=== PATIENT | female | born 1950 | race Caucasian/White ===

== ENCOUNTER → 2018-01-06 12:55 | Outpatient (CLI) | payer MEDICARE, SELFPAY ==
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
== END ==
PROVIDERS: PCP Family Medicine; Visit Provider Family Medicine
DX: M25.561 Pain in right knee (principal); M17.11 Unilateral primary osteoarthritis, right knee; S89.91XA Unspecified injury of right lower leg, initial encounter; Z98.890 Other specified postprocedural states; W17.2XXA Fall into hole, initial encounter
CPT/HCPCS: 73562

== ENCOUNTER 2018-04-19 00:05 | Outpatient (CLI) | payer MEDICARE, SELFPAY ==
[2018-04-19 10:19] LABS: ALT 93 U/L (12-78); Cholesterol 157 mg/dL (50-200); HDL Cholesterol 52 mg/dL (40-60); LDL CHOLESTEROL 86 mg/dL (<100); Triglyceride 126 mg/dL (30-150)
[2018-04-21 09:45] LABS: Hemoglobin A1C 6.4 % (4.5-6.2)
== END 2018-04-19 00:25 ==
PROVIDERS: PCP Family Medicine; Visit Provider Family Medicine
DX: E11.9 Type 2 diabetes mellitus without complications (principal); E78.5 Hyperlipidemia, unspecified
CPT/HCPCS: 36415; 80061; 83721; 83036; 84460

== ENCOUNTER 2018-11-18 09:26 | Emergency (ER) | payer MEDICARE, SELFPAY ==
[2018-11-18] VITALS (15 sets, daily range): BP systolic 111–134; BP diastolic 61–82; PULSE 89–126; RESP 12–19; TEMP 36.4; O2SAT 90–96
--- NOTE | 2018-11-18 09:53 | DI.RAD_ITS ---
SYMPTOM/DIAGNOSIS: S/P FALL DOWN 10, R/O FX 3RD AND 4TH FINGERS RIGHT HAND: No fracture or dislocation is seen. There are mild degenerative changes. IMPRESSION: Negative right hand.
--- NOTE | 2018-11-18 09:53 | DI.RAD_ITS ---
SYMPTOM/DIAGNOSIS: S/P FALL DOWN STEPS. R/O ACUTE FX RIGHT WRIST: There is soft tissue swelling over the dorsum of the wrist. There is a tiny bony fragment seen on the lateral view which may represent a cortical chip fracture. The carpal alignment appears normal. The distal radius, ulna and navicula appear intact. IMPRESSION: Dorsal chip fracture
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
[2018-11-18] MEDS: Lidocaine 5% Patch 1 PATCH TP (10:22)
[2018-11-18] MEDS: Ketorolac 15 MG/ML VIAL IVP (10:22)
[2018-11-18 10:42] LABS: Abs Immature Grans 0.02 k/cumm (0.0-0.09); Absolute Basophil Count 0.05 k/cumm (0.0-0.2); Absolute Eosinophil Count 0.25 k/cumm (0.0-0.7); Absolute Lymphocyte Count 2.59 k/cumm (1.2-3.4); Absolute Monocyte Count 0.71 k/cumm (0.11-0.7); Basophils % 0.5; Eosinophils % 2.4; HGB 15.3 g/dL (12.0-15.5); Immature Grans % 0.2; Lymphocytes % 24.4; Mean Corp. HGB Concentration 33.3 g/dL (32.0-36.0); Mean Corpuscular Hemoglobin 31.3 pg (27.0-33.0); Mean Corpuscular Volume 94.1 fL (80-95); Mean Platelet Volume 11.4 fL (8.0-11.0); Monocytes % 6.7; Neutrophils % 65.8; Platelet Count 212 x1000/uL (130-400); RBC 4.89 m/cumm (4.00-5.20); RBC Distribution Width 12.4 % (11.7-14.6); White Blood Cell Count 10.62 k/cumm (4.4-10.8)
[2018-11-18] MEDS: Normal Saline 250 ML IV ×2 (11:04→12:15)
[2018-11-18] MEDS: Omnipaque 350 MG/ML 100 ML BTL IJ (11:15)
[2018-11-18] MEDS: Normal Saline Flush 10 ML SYR IVP (11:15)
[2018-11-18 11:18] LABS: ALT 89 U/L (12-78); AST 123 U/L (15-37); Albumin 3.3 g/dL (3.4-5.0); Alkaline Phosphatase 99 U/L (46-116); Anion Gap 13.4 mmol/L (3-11); BUN 10 mg/dL (7-18); Bilirubin, Total 1.2 mg/dL (0.2-1.0); CO2 23.6 mmol/L (21.0-32.0); CREATININE 0.84 mg/dL (0.55-1.02); Calcium 9.2 mg/dL (8.5-10.1); Chloride 102 mmol/L (98-107); Glucose 215 mg/dL (70-100); Potassium 3.7 mmol/L (3.5-5.1); Sodium 139 mmol/L (136-145); Total Protein 7.7 g/dL (6.4-8.2)
--- NOTE | 2018-11-18 11:25 | DI.CT_ITS ---
SYMPTOM/DIAGNOSIS: FALL DOWN 10 STEPS, RT RIB PAIN, RT SHOULDER AND RT HIP PAIN CT CHEST, ABDOMEN AND PELVIS: Images were performed from the clavicles through the ischial tuberosities after IV and without oral contrast. CHEST CT: There is no evidence of pneumothorax, pleural or pericardial effusion. Emphysematous changes and fibrotic changes are noted greatest at the lung apices. There is no evidence of pulmonary contusion. The heart size is normal. Scoliosis and degenerative changes are seen in the spine. There are no displaced rib fractures or thoracic spine fractures. ABDOMEN AND PELVIC CT: The liver, spleen, pancreas, kidneys and adrenals appear intact without evidence of laceration. The patient is status post cholecystectomy. There is no free air, free fluid or bowel wall thickening. The patient is status post hysterectomy. The bladder appears intact. There is mild dilatation of the abdominal aorta to 3.1 cm in the infrarenal portion. There is significant calcification along the abdominal aorta and iliac arteries. There is slight anterior wedging of the L-1 vertebral body which appears stable when compared with chest x-ray from 2015. No pelvic fractures are seen. IMPRESSION: No acute abnormality in the chest, abdomen or pelvis.
--- NOTE | 2018-11-18 11:25 | DI.CT_ITS ---
SYMPTOM/DIAGNOSIS: S/P FALL DOWN [address]: Comparison is made with 18 June 2007. No intracranial hemorrhage, mass or infarct is seen. There is mild atrophy, increasing from the previous exam. The ventricles are normal in size. No skull fracture or sinus opacification seen. IMPRESSION: :No acute abnormality. CT CERVICAL SPINE: There is no evidence of fracture or subluxation. Degenerative disc changes and facet degenerative changes are seen. There is no significant central canal stenosis. The airway appears intact. No paraspinal hematoma is seen IMPRESSION: Degenerative changes. No acute abnormality.
--- NOTE | 2018-11-18 11:50 | DI.RAD_ITS ---
SYMPTOM/DIAGNOSIS: S/P FALL DOWN 10, R/O FX 4TH FINGER LEFT HAND: No fracture or dislocation is seen. There are mild degenerative changes. IMPRESSION: Degenerative changes. No acute abnormality.
== END 2018-11-18 14:06 | disposition home or self-care (01) ==
PROVIDERS: Emergency Provider Physician Assistant; PCP Family Medicine
DX: S62.101A Fracture of unspecified carpal bone, right wrist, initial encounter for closed fracture (principal); S62.622A Displaced fracture of middle phalanx of right middle finger, initial encounter for closed fracture; S06.0X0A Concussion without loss of consciousness, initial encounter; S20.211A Contusion of right front wall of thorax, initial encounter; M79.642 Pain in left hand; M25.511 Pain in right shoulder; I10 Essential (primary) hypertension; J44.9 Chronic obstructive pulmonary disease, unspecified; W10.8XXA Fall (on) (from) other stairs and steps, initial encounter; E11.9 Type 2 diabetes mellitus without complications
CPT/HCPCS: 26750; 36415; 74177; 80053; 96361; 96374; 96375; 99285; 70450; 71260; 72125; 73110; 73130; 85025; 99284; J1885; J3490

== ENCOUNTER → 2018-11-20 09:41 | Outpatient (BNVA) | payer MEDICARE, SELFPAY | PROVIDERS: PCP Family Medicine; Referring Provider Family Medicine; Visit Provider Orthopaedic Surgery | DX: S62.111A Displaced fracture of triquetrum [cuneiform] bone, right wrist, initial encounter for closed fracture (principal); W10.9XXA Fall (on) (from) unspecified stairs and steps, initial encounter; I10 Essential (primary) hypertension; J44.9 Chronic obstructive pulmonary disease, unspecified | CPT/HCPCS: 99201; 99213; L3908 ==

== ENCOUNTER → 2018-12-11 10:19 | Outpatient (BNVA) | payer MEDICARE, SELFPAY | PROVIDERS: Referring Provider Family Medicine; Visit Provider Orthopaedic Surgery | DX: S62.111D Displaced fracture of triquetrum [cuneiform] bone, right wrist, subsequent encounter for fracture with routine healing (principal); X58.XXXD Exposure to other specified factors, subsequent encounter; J44.9 Chronic obstructive pulmonary disease, unspecified; I10 Essential (primary) hypertension; Z87.891 Personal history of nicotine dependence | CPT/HCPCS: 99213 ==

== ENCOUNTER 2019-03-23 17:03 | Inpatient (IN) | payer MEDICARE, SELFPAY ==
[2019-03-23] VITALS (53 sets, daily range): BP systolic 96–129; BP diastolic 42–96; PULSE 88–110; RESP 11–27; TEMP 37.1–37.2; O2SAT 64–98
--- NOTE | 2019-03-23 17:16 | DI.RAD_ITS ---
EXAM: XR CHEST 2V PA LATERAL INDICATION: cough, sob, r/o pneumonia. COMPARISON: Comparison is made with 28 June 2014. TECHNIQUE: 2D digital imaging was performed. FINDINGS: Heart size is normal. The aorta is calcified. There are emphysematous and fibrotic changes. The right diaphragm is elevated. No acute infiltrate, effusion or pulmonary edema is seen. IMPRESSION: No acute abnormality.
[2019-03-23] MEDS: Normal Saline Flush 10 ML SYR IVP (17:40)
[2019-03-23 17:51] LABS: Abs Immature Grans 0.03 k/cumm (0.0-0.09); Absolute Basophil Count 0.09 k/cumm (0.0-0.2); Absolute Monocyte Count 1.31 k/cumm (0.11-0.7); Basophils % 0.6; Eosinophils % 5.4; HCT 47.3 % (36.0-46.0); HGB 15.2 g/dL (12.0-15.5); Immature Grans % 0.2; Lymphocytes % 39.7; Mean Corp. HGB Concentration 32.1 g/dL (32.0-36.0); Mean Corpuscular Hemoglobin 30.6 pg (27.0-33.0); Mean Corpuscular Volume 95.2 fL (80-95); Mean Platelet Volume 10.1 fL (8.0-11.0); Neutrophils % 45.1; Platelet Count 221 x1000/uL (130-400); RBC 4.97 m/cumm (4.00-5.20); RBC Distribution Width 12.9 % (11.7-14.6)
[2019-03-23 17:59] LABS: Absolute Eosinophil Count 0.78 k/cumm (0.0-0.7); Absolute Lymphocyte Count 5.76 k/cumm (1.2-3.4); Absolute Neutrophil Count 6.54 k/cumm (1.2-6.7)
--- NOTE | 2019-03-23 18:00 | ED.GENADUL_ITS ---
Discharge Plan Disposition Patient Disposition: [facility] INPATIENT Condition: Serious Discharge Details Chief Complaint: SOB Clinical Impression: NSTEMI (non-ST elevated myocardial infarction) Admit Date/Time: 03/23/19 21:18 Admit Provider: Andrei Locke Attending Provider: Andrei Locke Primary Care Provider: Louis Malhotra ED Provider: Oksana Felipe Discharge Data Discharge Date/Time-TO BE ENTERED AT DEPARTURE: 03/23/19 23:10 Medical Decision Making 68-year-old female with history of anxiety, COPD, hypertension, hyperlipidemia presents with intermittent chest pain shortness of breath for the past month. Sent from PCP office for concern for dyspnea and hypoxia, improved with neb treatment. Afebrile, O2 sat 91% on room air. She has scattered wheezing and rhonchi throughout. No lower extremity edema. EKG on arrival notes a rate of 99, sinus with right bundle branch block which has been seen in previous EKG. She also has a new left anterior fascicular block. Differential diagnosis includes COPD exacerbation, ACS, CHF, pneumonia. Will check screening labs, chest x-ray and we will give a DuoNeb and Solu-Medrol. 1819 --labs reviewed. White blood cell count 14. Troponin 2.99. Magnesium 1.6. BNP 358. Chest x-ray negative. 1849 -- d/w [facility] cardiology -recommends treatment for NSTEMI and will accept pt for transfer but there is no bed availability for at least 12 to [address] Salcedo. Recommends aspirin, Brilinta, heparin bolus and drip. If any acute changes in patient's status including hypotension or significant elevation in troponin, call for emergent transfer. He also recommends against further nebs and steroids to prevent tachycardia which may worsen NSTEMI. Patient initially was hesitant with admission and transfer but spoke with her and is now agreeable. 1999 -- case d/w Dr. Locke who accepts patient for admission. Medical Records Medical records reviewed: Yes I reviewed the patient's medical records. Imaging Data Radiologic Study: Radiologist's impression: XR Chest, 2 Views Exam date and time: 03/23/2019 18:21 Clinical history: 68 years old, female; Other: Cough, SOB, R/O pneumonia TECHNIQUE: Imaging protocol: XR of the chest Views: 2 views. COMPARISON: CR CHEST 2 VIEWS PA,LAT 06/28/2014 14:19 FINDINGS: Lungs: Similar areas of midlung zone scarring and/or subsegmental atelectasis with no new significant consolidation to suggest pneumonia. Pleural space: No pleural effusion. No pneumothorax. Heart/Mediastinum: No cardiomegaly. Diaphragm: Elevated right hemidiaphragm. Vasculature: Atherosclerosis. Tortuous aorta. Bones/joints: No acute fracture. IMPRESSION: Similar areas of midlung zone scarring and/or subsegmental atelectasis with no new significant consolidation to suggest pneumonia. Lab Data Lab results reviewed: Yes I reviewed the patient's lab results. Labs: Laboratory Tests Range/Units 03/23/19 03/23/19 03/23/19 17:40 17:40 17:41 WBC (4.4-10.8) k/cumm 14.50 H RBC (4.00-5.20) m/cumm 4.97 Hgb (12.0-15.5) g/dL 15.2 Hct (36.0-46.0) % 47.3 H MCV (80-95) fL 95.2 H MCH (27.0-33.0) pg 30.6 MCHC (32.0-36.0) g/dL 32.1 RDW (11.7-14.6) % 12.9 Plt Count (130-400) x1000/uL 221 MPV (8.0-11.0) fL 10.1 Immature Gran % 0.2 Neutrophils % 45.1 Lymphocytes % 39.7 Monocytes % 9.0 Eosinophils % 5.4 Basophils % 0.6 Absolute Neutrophils (1.2-6.7) k/cumm 6.54 Absolute Lymphocytes (1.2-3.4) k/cumm 5.76 H Absolute Monocytes (0.11-0.7) k/cumm 1.31 H Absolute Eosinophils (0.0-0.7) k/cumm 0.78 H Absolute Basophils (0.0-0.2) k/cumm 0.09 Differential Comment Diff reviewed RBC Morphology See below Macrocytosis 1+ Sodium (136-145) mmol/L 141 Potassium (3.5-5.1) mmol/L 3.8 Chloride (98-107) mmol/L 104 Carbon Dioxide (21.0-32.0) mmol/L 28.3 Anion Gap (3-11) mmol/L 8.7 BUN (7-18) mg/dL 9 Creatinine (0.55-1.02) mg/dL 0.74 Estimated GFR/1.73 m2 (mL/min/1.73m2) >= 60.00 Glucose (70-100) mg/dL 148 H Calcium (8.5-10.1) mg/dL 8.9 Magnesium (1.8-2.4) mg/dL 1.6 L Total Bilirubin (0.2-1.0) mg/dL 0.6 AST (15-37) U/L 90 H ALT (14-59) U/L 60 H Alkaline Phosphatase (46-116) U/L 96 Troponin I (0.00-0.06) ng/mL 2.99 H* NT-Pro-B Natriuret Pep ( - 299) pg/mL 358 H Total Protein (6.4-8.2) g/dL 7.4 Albumin (3.4-5.0) g/dL 3.2 L ECG Data Attestation: I personally reviewed and interpreted this ECG (s) as follows: Interpretation: #1 -- Rate of 99, sinus, incomplete right bundle branch block. Left anterior fascicular block. Right bundle branch block seen in previous EKG but LAFB appears new. T wave inversion in 3 and aVF which appears new from previous. HI 146. QTc 490. #2 -- rate of 102, sinus, right bundle branch block, left anterior fascicular block. T wave inversion in 3 [address]VF[address] No acute ST elevation. HI 156. QTc 516. HPI General Mode of arrival: ambulatory . Date/Time Provider Initiated Documentation: 03/23/19 17:06 . Limitations to Documentation: no limitations . Information obtained by: patient . HPI Narrative: Pt is a 68yo F who presents to the ED w/ a c/o intermittent shortness of breath and chest pain for the past month. She does also admit to cough with yellow sputum. Related Data Home Medications Medication Instructions Recorded Confirmed omega-3 fatty acids-fish oil 1 ea PO DAILY 03/30/13 03/23/19 Premarin 1 g TOPICAL DAILY PRN #1 tube 04/07/15 03/23/19 ipratropium-albuterol 3 ml INHALATION Q6H PRN #120 amp 04/08/17 03/23/19 clobetasol-emollient 15 gm TOPICAL twice weekly PRN #1 11/27/17 03/23/19 tube fluticasone propionate 50 1 - 2 spray NS DAILY #1 inh 02/25/18 03/23/19 mcg/actuation nasal spray,suspension Symbicort 2 puff INHALATION BID #3 inhaler 03/26/18 03/23/19 betamethasone valerate 0.1 % 1 applic TP BID PRN #45 gm 07/02/18 03/23/19 topical cream cyclobenzaprine 5 mg tablet 5 mg PO TID PRN #30 tab 10/28/18 03/23/19 atorvastatin 20 mg tablet 20 mg PO QHS #90 tab 11/14/18 03/23/19 lidocaine [Lidoderm] 1 patch TP DAILY PRN #15 each 11/18/18 03/23/19 pantoprazole 40 mg tablet,delayed 40 mg PO DAILY #90 tab-cap 12/05/18 03/23/19 release sitagliptin 100 mg tablet 100 mg PO DAILY #30 tab-cap 12/17/18 03/23/19 clonazepam 2 mg tablet 2 mg PO HS 30 Days #30 tab-cap 12/31/18 03/23/19 fluoxetine 20 mg capsule 20 mg PO HS #90 tab-cap 02/26/19 03/23/19 fluoxetine 40 mg capsule 40 mg PO DAILY #90 tab-cap 02/26/19 03/23/19 Previous Rx's Medication Instructions Recorded ipratropium-albuterol 3 ml INHALATION Q6H PRN #120 amp 04/08/17 fluticasone propionate 50 1 - 2 spray NS DAILY #1 inh 02/25/18 mcg/actuation nasal spray,suspension Symbicort 2 puff INHALATION BID #3 inhaler 03/26/18 betamethasone valerate 0.1 % 1 applic TP BID PRN #45 gm 07/02/18 topical cream cyclobenzaprine 5 mg tablet 5 mg PO TID PRN #30 tab 10/28/18 atorvastatin 20 mg tablet 20 mg PO QHS #90 tab 11/14/18 lidocaine [Lidoderm] 1 patch TP DAILY PRN #15 each 11/18/18 pantoprazole 40 mg tablet,delayed 40 mg PO DAILY #90 tab-cap 12/05/18 release sitagliptin 100 mg tablet 100 mg PO DAILY #30 tab-cap 12/17/18 clonazepam 2 mg tablet 2 mg PO HS 30 Days #30 tab-cap 12/31/18 fluoxetine 20 mg capsule 20 mg PO HS #90 tab-cap 02/26/19 fluoxetine 40 mg capsule 40 mg PO DAILY #90 tab-cap 02/26/19 Allergies Allergy/AdvReac Type Severity Reaction Status Date / Time codeine Allergy Mild ITCH, RASH Unverified 03/23/19 17:24 Sulfa (Sulfonamide AdvReac Intermediate Nausea Unverified 03/23/19 17:24 Antibiotics) General Stated Complaint: SOB CAROLINE: 2 Review of Systems Review of Systems ROS Unobtainable: All systems reviewed & are unremarkable except as noted in HPI and below Constitutional Constitutional: Reports as per HPI, Denies chills and Denies fever(s) Eyes Eyes: Denies blurry vision ENT Ears, Nose, Mouth, and Throat: Denies dizziness, Denies sore throat and Denies throat swelling Cardiovascular Cardiovascular: Denies chest pain and Reports dyspnea Respiratory Respiratory: Reports cough and Reports dyspnea Gastrointestinal Gastrointestinal: Denies abdominal pain, Denies diarrhea and Denies vomiting Genitourinary Genitourinary: Denies hematuria and Denies dysuria Musculoskeletal Musculoskeletal: Denies back pain and Denies numbness Integumentary/Breasts Skin/Breast: Denies lesions and Denies rash Neurologic Neurologic: Denies dizziness, Denies focal weakness and Denies numbness Allergic/Immunologic Allergic/Immunologic: Denies throat swelling [facility] Medical History Anxiety Arthritis of knee Asthma COPD (chronic obstructive pulmonary disease) Depression Elevated fasting glucose Hyperlipidemia Hypertension Suspected sleep apnea Vulvitis 04/2015. neg vag path. Rx with topical E2 and Clobetasol. Surgical History Cholecystectomy History of hysterectomy (Chronic) History of knee surgery (Acute) Social History Smoking/Tobacco Use Status: Former Tobacco Use Alcohol Intake: never Drug use: Never Do you feel safe at home: Yes Do you feel safe in your relationship?: Yes Exam Const General: cooperative and no acute distress HENMT Head: normal to inspection Face and sinus: normal facial exam Eyes General: appearance normal, both eyes and all related structures EOM: EOM intact bilaterally Neck Neck: normal visual inspection and No submandibular swelling Lymphatic: no lymphadenopathy noted Chest Chest: normal inspection of the chest and no tenderness Resp Effort & Inspection: normal respiratory effort and able to speak in complete s entences Auscultation: rhonchi lower bilaterally and wheezes expiratory wheezes and inspiratory wheezes Cardio Rate: regular rate Rhythm: regular rhythm GI Inspection: normal to inspection Palpation: soft, not firm, not rigid and nontender Auscultation: normal bowel sounds Back/Spine/Pelvis Pelvis: no pain with anterior-posterior compression Skin General skin exam: no rashes or lesions noted Neuro General: alert, awake and oriented x3 Cognition: normal cognition Speech: speech normal Motor: muscle tone normal throughout Sensory Exam: no sensory deficits noted Extrem General: normal to inspection, full ROM, normal capillary refill, no calf tenderness bilaterally and no edema Psych Appearance: grossly normal Mental Status: mental status grossly normal Speech and Movement: speech and movement normal Affect: normal affect Course Vital Signs Vital signs: Vital Signs Temperature 98.8 F 03/23/19 17:06 Pulse 98 H 03/23/19 17:06 Respiratory Rate 16 03/23/19 17:06 Blood Pressure 118/77 03/23/19 17:06 Pulse Oximetry 91 L 03/23/19 17:06 Temperature 98.8 F 03/23/19 17:06 Temperature Source Skin 03/23/19 17:06 Pulse 91 H 03/23/19 17:37 Pulse 91 H 03/23/19 17:31 Respiratory Rate 13 03/23/19 17:37 Respiratory Effort Incrsd Work of Breathing 03/23/19 17:28 Respiratory Depth Normal 03/23/19 17:26 Respiratory Pattern Normal 03/23/19 17:26 Blood Pressure 112/48 L 03/23/19 17:37 Blood Pressure Mean 66 03/23/19 17:31 Pulse Oximetry 94 L 03/23/19 17:37 Oxygen Delivery Method Nasal Cannula 03/23/19 17:37 Oxygen Flow Rate 2 03/23/19 17:37 Pain Level 5 03/23/19 17:06 Lab/Test Results Lab/Test Results: Laboratory Tests Range/Units 03/23/19 17:40 WBC (4.4-10.8) k/cumm 14.50 H RBC (4.00-5.20) m/cumm 4.97 Hgb (12.0-15.5) g/dL 15.2 Hct (36.0-46.0) % 47.3 H MCV (80-95) fL 95.2 H MCH (27.0-33.0) pg 30.6 MCHC (32.0-36.0) g/dL 32.1 RDW (11.7-14.6) % 12.9 Plt Count (130-400) x1000/uL 221 MPV (8.0-11.0) fL 10.1
[2019-03-23 18:06] LABS: ALT 60 U/L (14-59); AST 90 U/L (15-37); Albumin 3.2 g/dL (3.4-5.0); Alkaline Phosphatase 96 U/L (46-116); Anion Gap 8.7 mmol/L (3-11); BUN 9 mg/dL (7-18); Bilirubin, Total 0.6 mg/dL (0.2-1.0); CO2 28.3 mmol/L (21.0-32.0); CREATININE 0.74 mg/dL (0.55-1.02); Calcium 8.9 mg/dL (8.5-10.1); Chloride 104 mmol/L (98-107); Glucose 148 mg/dL (70-100); Magnesium 1.6 mg/dL (1.8-2.4); Potassium 3.8 mmol/L (3.5-5.1); Sodium 141 mmol/L (136-145); Total Protein 7.4 g/dL (6.4-8.2)
[2019-03-23 18:07] LABS: Troponin I 2.99 ng/mL (0.00-0.06)
[2019-03-23] MEDS: Albuterol/Ipratropium 3 ML UPD VIAL UPD (18:07)
[2019-03-23] MEDS: methylPREDNISolone SUCC 125 MG VIAL IVP (18:08)
[2019-03-23 18:21] LABS: Diff Comment Diff Reviewed; Macrocytosis 1+
--- NOTE | 2019-03-23 18:29 | DI.VRAD_ITS ---
PROCEDURE INFORMATION: Exam: XR Chest, 2 Views Exam date and time: 03/23/2019 18:21 Clinical history: 68 years old, female; Other: Cough, SOB, R/O pneumonia TECHNIQUE: Imaging protocol: XR of the chest Views: 2 views. COMPARISON: CR CHEST 2 VIEWS PA,LAT 06/28/2014 14:19 FINDINGS: Lungs: Similar areas of midlung zone scarring and/or subsegmental atelectasis with no new significant consolidation to suggest pneumonia. Pleural space: No pleural effusion. No pneumothorax. Heart/Mediastinum: No cardiomegaly. Diaphragm: Elevated right hemidiaphragm. Vasculature: Atherosclerosis. Tortuous aorta. Bones/joints: No acute fracture. IMPRESSION: Similar areas of midlung zone scarring and/or subsegmental atelectasis with no new significant consolidation to suggest pneumonia. Dictated and Authenticated by: Salnia Pandya MD. Ordering:OLU Gandhi MD
[2019-03-23] MEDS: Aspirin 325 MG TAB PO (18:37)
[2019-03-23 18:45] LABS: NT-proBNP 358 pg/mL
[2019-03-23] MEDS: Ticagrelor 90 MG TAB 180 MG PO (20:00)
[2019-03-23] MEDS: Normal Saline 500 ML 1000 ML IV (20:06)
[2019-03-23] MEDS: MAGNESIUM SULFATE 1 GM/100 ML BAG IVPB (21:30)
[2019-03-23 21:38] LABS: Troponin I 2.59 ng/mL (0.00-0.06)
--- NOTE | 2019-03-23 21:42 | HPE_ITS ---
Date of service: 03/23/19 Time of Service: 21:43 Assessment and Plan Assessment and plan (1) NSTEMI (non-ST elevation myocardial infarction): Start date: 03/23/19 Status: Acute Assessment and plan: This is a 68-year-old lady who was thought to have COPD exacerbation in the office because of hypoxemia and dyspnea. In the ED she was found to have an elevated troponin and EKG with right bundle branch block and left anterior fascicular block with no apparent acute ST-T changes. [facility] cardiology was called and accepted her trans stephanie once a bed opened within 12 to 24 hours. If she worsened with symptoms including hypotension or her troponins were markedly escalating she would be transferred emergently. At the time I saw the patient she was anxious and slightly tachypneic but comfortable with some atypical chest pain and her troponins were trending down. She was on a heparin infusion having received Brilinta and aspirin in the ED. I would add morphine for comfort with increased use of Ativan for anxiety and avoid nebulizers unless she was significantly wheezing or hypoxic. She was not to be continued on steroids. I would also add a low-dose Lopressor for tachycardia. Patient is a full code and this will be respected. (2) Chronic obstructive lung disease: Status: Acute Assessment and plan: Observed with only as needed nebulizers and oxygen supplementation as warranted. Morphine may help her dyspnea. Ativan would help her anxiety. Qualifiers: COPD type: COPD with acute exacerbation Qualified Code(s): J44.1 - Chronic obstructive pulmonary disease with (acute) exacerbation (3) Depressive disorder: Status: Chronic Assessment and plan: Continue antidepressants and clonazepam at night with Ativan to be added for as needed use for anxiety and her acute situation. She also would be given morphine for discomfort and dyspnea which may help her anxiety. History of Present Illness History of Present Illness Chief Complaint: Shortness of breath and chest pain with hypoxemia Narrative: This is a 68-year-old lady who has had shortness of breath and chest discomfort for the last month questions of pneumonia and treatment of prednisone and respiratory nebulizers over this last month. She said that she went to her PCP today and they were concerned because of her shortness of breath and hypoxemia in the office. In the ED she was wheezing diffusely which responded to nebulizer but was found to have an elevated troponin. She did have chest discomfort but it was not worsening not typical of angina. She was not given nitroglycerin and she appeared comfortable without typical chest pain when I examined her. She was very anxious and in the ED on and she had to call her to decide whether she wanted to stay and consider transfer for catheterization for non-STEMI as had been arranged by Dr. Felipe in the ED. See ED report for review. At the time I saw the patient she was not wheezing but slightly tachypneic and anxious. She was having discomfort with no true chest pressure or chest pain. She stated that she was not allergic to morphine though there was an allergy of codeine on her chart and she had not yet recieved morphine in the ED. She had received aspirin and Brilinta in the ED and was started on a heparin infusion. Her symptoms were minimally changed with this therapy. Pertinent review of systems positive for her significant anxiety with COPD and depression. She has never had angina or a myocardial infarction. She has no history of edema or CHF. Review of Systems Review of Systems Narrative: 13 point review of systems otherwise unrevealing or stable. COUNT INCLUDES [facility] Medical History Anxiety Arthritis of knee Asthma COPD (chronic obstructive pulmonary disease) Depression Elevated fasting glucose Hyperlipidemia Hypertension Suspected sleep apnea Vulvitis 04/2015. neg vag path. Rx with topical E2 and Clobetasol. Surgical History Cholecystectomy History of hysterectomy (Chronic) History of knee surgery (Acute) Social History Smoking/Tobacco Use Status: Former Tobacco Use Alcohol Intake: never Drug use: Never Do you feel safe at home: Yes Do you feel safe in your relationship?: Yes Meds Home Medications and Allergies Home Medications Medication Instructions Recorded Confirmed Type omega-3 fatty acids-fish oil 1 ea PO DAILY 03/30/13 03/23/19 History Premarin 1 g TOPICAL DAILY PRN #1 tube 04/07/15 03/23/19 History Proventil Hfa 2 puff INHALATION Q6H PRN #1 04/08/17 03/23/19 Clinic inhaler ipratropium-albuterol 3 ml INHALATION Q6H PRN #120 amp 04/08/17 03/23/19 Rx clobetasol-emollient 15 gm TOPICAL twice weekly PRN #1 11/27/17 03/23/19 History tube fluticasone propionate 50 1 - 2 spray NS DAILY #1 inh 02/25/18 03/23/19 Rx mcg/actuation nasal spray,suspension Symbicort 2 puff INHALATION BID #3 inhaler 03/26/18 03/23/19 Rx betamethasone valerate 0.1 % 1 applic TP BID PRN #45 gm 07/02/18 03/23/19 Rx topical cream cyclobenzaprine 5 mg tablet 5 mg PO TID PRN #30 tab 10/28/18 03/23/19 Rx atorvastatin 20 mg tablet 20 mg PO QHS #90 tab 11/14/18 03/23/19 Rx lidocaine [Lidoderm] 1 patch TP DAILY PRN #15 each 11/18/18 03/23/19 Rx pantoprazole 40 mg tablet,delayed 40 mg PO DAILY #90 tab-cap 12/05/18 03/23/19 Rx release sitagliptin 100 mg tablet 100 mg PO DAILY #30 tab-cap 12/17/18 03/23/19 Rx clonazepam 2 mg tablet 2 mg PO HS 30 Days #30 tab-cap 12/31/18 03/23/19 Rx fluoxetine 20 mg capsule 20 mg PO HS #90 tab-cap 02/26/19 03/23/19 Rx fluoxetine 40 mg capsule 40 mg PO DAILY #90 tab-cap 02/26/19 03/23/19 Rx ipratropium-albuterol 0.5 mg-3 3 ml INHALATION ONCE #3 ml 03/23/19 03/23/19 Clinic mg(2.5 mg base)/3 mL nebulization soln Allergies Allergy/AdvReac Type Severity Reaction Status Date / Time codeine Allergy Mild ITCH, RASH Unverified 03/23/19 17:24 Sulfa (Sulfonamide AdvReac Intermediate Nausea Unverified 03/23/19 17:24 Antibiotics) Exam Narrative Exam Narrative: General: Patient is anxious and tachypneic with flattened affect and fair eye contact. She is alert and oriented x3. HEENT: Normocephalic with eyes revealing pupils equal and reactive light symmetrically and extraocular movement intact. Sclera anicteric. Oropharynx with slightly dry mucosa and edentulous. Ears normal. Neck: Supple without JVD. Back: Stooped posture with no CVA tenderness. Lungs: Fair aeration with bronchovesicular breath sounds diffusely and normal expiratory to expiratory phase ratio. Scant expiratory wheeze anteriorly int ermittently. Heart: Regular rate and rhythm no appreciable murmurs, gallops or rubs. Breast: Exam deferred. Abdomen: Obese contour, soft and nontender to palpation. No palpable hepatosplenomegaly. Bowel sounds positive all quadrants. Genitalia/rectal: Exam deferred. Extremities: Without clubbing, cyanosis or edema. Neuro: Cranial nerves II through XII grossly intact, no focalizing motor deficits. Skin: Pale, warm and dry. Psych: Anxious with depressed mood. Normal thought processes and memory intact. Results Imaging Imaging Studies: Exam(s) PROCEDURE INFORMATION: Exam: XR Chest, 2 Views Exam date and time: 03/23/2019 18:21 Clinical history: 68 years old, female; Other: Cough, SOB, R/O pneumonia TECHNIQUE: Imaging protocol: XR of the chest Views: 2 views. COMPARISON: CR CHEST 2 VIEWS PA,LAT 06/28/2014 14:19 FINDINGS: Lungs: Similar areas of midlung zone scarring and/or subsegmental atelectasis with no new significant consolidation to suggest pneumonia. Pleural space: No pleural effusion. No pneumothorax. Heart/Mediastinum: No cardiomegaly. Diaphragm: Elevated right hemidiaphragm. Vasculature: Atherosclerosis. Tortuous aorta. Bones/joints: No acute fracture. IMPRESSION: Similar areas of midlung zone scarring and/or subsegmental atelectasis with no new significant consolidation to suggest pneumonia. Dictated and Authenticated by: Salina Pandya MD. Labs Result diagrams: 03/23/19 17:40 03/23/19 17:40 Labs: Laboratory Results - last 24 hr 03/23/19 03/23/19 03/23/19 17:40 17:40 17:41 WBC 14.50 H RBC 4.97 Hgb 15.2 Hct 47.3 H MCV 95.2 H MCH 30.6 MCHC 32.1 RDW 12.9 Plt Count 221 MPV 10.1 Immature Gran % 0.2 Neutrophils % 45.1 Lymphocytes % 39.7 Monocytes % 9.0 Eosinophils % 5.4 Basophils % 0.6 Absolute Neutrophils 6.54 Absolute Lymphocytes 5.76 H Absolute Monocytes 1.31 H Absolute Eosinophils 0.78 H Absolute Basophils 0.09 Differential Comment Diff reviewed RBC Morphology See below Macrocytosis 1+ Sodium 141 Potassium 3.8 Chloride 104 Carbon Dioxide 28.3 Anion Gap 8.7 BUN 9 Creatinine 0.74 Estimated GFR/1.73 m2 >= 60.00 Glucose 148 H Calcium 8.9 Magnesium 1.6 L Total Bilirubin 0.6 AST 90 H ALT 60 H Alkaline Phosphatase 96 Troponin I 2.99 H* NT-Pro-B Natriuret Pep 358 H Total Protein 7.4 Albumin 3.2 L 03/23/19 21:15 WBC RBC Hgb Hct MCV MCH MCHC RDW Plt Count MPV Immature Gran % Neutrophils % Lymphocytes % Monocytes % Eosinophils % Basophils % Absolute Neutrophils Absolute Lymphocytes Absolute Monocytes Absolute Eosinophils Absolute Basophils Differential Comment RBC Morphology Macrocytosis Sodium Potassium Chloride Carbon Dioxide Anion Gap BUN Creatinine Estimated GFR/1.73 m2 Glucose Calcium Magnesium Total Bilirubin AST ALT Alkaline Phosphatase Troponin I 2.59 H* NT-Pro-B Natriuret Pep Total Protein Albumin Last Vital Signs Temp 37.1 C 03/23/19 17:06 Pulse 99 H 03/23/19 21:01 Resp 15 03/23/19 21:01 BP 115/55 L 03/23/19 21:01 Pulse Ox 95 03/23/19 21:01
[2019-03-23 22:21] LABS: Prothrombin Time 10.3 sec (9.3-11.0)
[2019-03-23 22:45] LABS: PTT Activated 72.8 sec (21.0-31.4)
[2019-03-23 22:45] LABS: TSH 2.81 uIU/mL (0.36-3.74)
[2019-03-23] MEDS: Normal Saline 1,000 ML 80 ML IV (23:52)
[2019-03-24] VITALS (20 sets, daily range): BP systolic 89–121; BP diastolic 46–83; PULSE 78–102; RESP 4–20; TEMP 36–36.7; O2SAT 88–96
[2019-03-24] MEDS: clonazePAM 1 MG TAB 2 MG PO (00:10)
[2019-03-24] MEDS: Atorvastatin 20 MG TAB PO (00:13)
[2019-03-24] MEDS: FLUoxetine 20 MG CAP PO (00:13)
[2019-03-24] MEDS: MORPHine 2 MG/ML SYR IVP ×4 (00:56→10:30)
[2019-03-24] MEDS: Metoprolol 12.5 MG TAB PO (00:58)
[2019-03-24] MEDS: Insulin Aspart 300 UNITS/3 ML PEN SC (01:23)
[2019-03-24 01:31] LABS: Troponin I 3.07 ng/mL (0.00-0.06)
[2019-03-24] MEDS: LORazepam 0.5 MG TAB PO ×3 (01:52→10:56)
[2019-03-24 03:35] LABS: Troponin I 2.94 ng/mL (0.00-0.06)
[2019-03-24 06:56] LABS: HCT 43.3 % (36.0-46.0); Mean Corp. HGB Concentration 32.3 g/dL (32.0-36.0); Mean Corpuscular Hemoglobin 30.9 pg (27.0-33.0); Mean Corpuscular Volume 95.6 fL (80-95); Mean Platelet Volume 10.7 fL (8.0-11.0); Platelet Count 211 x1000/uL (130-400); RBC 4.53 m/cumm (4.00-5.20); RBC Distribution Width 12.7 % (11.7-14.6); White Blood Cell Count 12.55 k/cumm (4.4-10.8)
[2019-03-24 07:13] LABS: ALT 53 U/L (14-59); AST 71 U/L (15-37); Albumin 2.9 g/dL (3.4-5.0); Alkaline Phosphatase 86 U/L (46-116); BUN 8 mg/dL (7-18); Bilirubin, Total 0.7 mg/dL (0.2-1.0); CREATININE 0.78 mg/dL (0.55-1.02); Calcium 8.6 mg/dL (8.5-10.1); Chloride 102 mmol/L (98-107); Glucose 242 mg/dL (70-100); Magnesium 1.9 mg/dL (1.8-2.4); Potassium 4.1 mmol/L (3.5-5.1); Sodium 133 mmol/L (136-145)
[2019-03-24 07:22] LABS: Troponin I 2.81 ng/mL (0.00-0.06)
[2019-03-24 07:27] LABS: PTT Activated 52.1 sec (21.0-31.4)
[2019-03-24] MEDS: Albuterol/Ipratropium 3 ML UPD VIAL UPD (08:04)
[2019-03-24] MEDS: Budesonide/Formoterol 160/4.5 6 GM 60 PUFF INH IH (08:20)
--- NOTE | 2019-03-24 08:23 | W.PM.PROGNOT ---
Subjective Subjective Interval history since last seen: Denies CP today. Does get SOLER, 2L 94%. BP 107/56. SR with RBBB. No arrhythmias. Did need IV morphine overnight. Objective Objective Clinical Data: Abnormal lab results 03/23/19 03/23/19 03/23/19 Range/Units 17:40 17:40 17:41 WBC 14.50 H (4.4-10.8) k/cumm Hct 47.3 H (36.0-46.0) % MCV 95.2 H (80-95) fL Absolute Lymphocytes 5.76 H (1.2-3.4) k/cumm Absolute Monocytes 1.31 H (0.11-0.7) k/cumm Absolute Eosinophils 0.78 H (0.0-0.7) k/cumm APTT (21.0-31.4) sec Sodium (136-145) mmol/L Glucose 148 H (70-100) mg/dL Magnesium 1.6 L (1.8-2.4) mg/dL AST 90 H (15-37) U/L ALT 60 H (14-59) U/L Troponin I 2.99 H* (0.00-0.06) ng/mL NT-Pro-B Natriuret Pep 358 H ( - 299) pg/mL Albumin 3.2 L (3.4-5.0) g/dL 03/23/19 03/23/19 03/24/19 Range/Units 21:15 22:24 00:55 WBC (4.4-10.8) k/cumm Hct (36.0-46.0) % MCV (80-95) fL Absolute Lymphocytes (1.2-3.4) k/cumm Absolute Monocytes (0.11-0.7) k/cumm Absolute Eosinophils (0.0-0.7) k/cumm APTT 72.8 H (21.0-31.4) sec Sodium (136-145) mmol/L Glucose (70-100) mg/dL Magnesium (1.8-2.4) mg/dL AST (15-37) U/L ALT (14-59) U/L Troponin I 2.59 H* 3.07 H* (0.00-0.06) ng/mL NT-Pro-B Natriuret Pep ( - 299) pg/mL Albumin (3.4-5.0) g/dL 03/24/19 03/24/19 03/24/19 Range/Units 03:00 06:25 06:25 WBC (4.4-10.8) k/cumm Hct (36.0-46.0) % MCV (80-95) fL Absolute Lymphocytes (1.2-3.4) k/cumm Absolute Monocytes (0.11-0.7) k/cumm Absolute Eosinophils (0.0-0.7) k/cumm APTT (21.0-31.4) sec Sodium 133 L (136-145) mmol/L Glucose 242 H D (70-100) mg/dL Magnesium (1.8-2.4) mg/dL AST 71 H (15-37) U/L ALT (14-59) U/L Troponin I 2.94 H* 2.81 H* (0.00-0.06) ng/mL NT-Pro-B Natriuret Pep ( - 299) pg/mL Albumin 2.9 L (3.4-5.0) g/dL 03/24/19 03/24/19 Range/Units 06:25 06:25 WBC 12.55 H (4.4-10.8) k/cumm Hct (36.0-46.0) % MCV 95.6 H (80-95) fL Absolute Lymphocytes (1.2-3.4) k/cumm Absolute Monocytes (0.11-0.7) k/cumm Absolute Eosinophils (0.0-0.7) k/cumm APTT 52.1 H D (21.0-31.4) sec Sodium (136-145) mmol/L Glucose (70-100) mg/dL Magnesium (1.8-2.4) mg/dL AST (15-37) U/L ALT (14-59) U/L Troponin I (0.00-0.06) ng/mL NT-Pro-B Natriuret Pep ( - 299) pg/mL Albumin (3.4-5.0) g/dL Vital Signs Temperature 36.6 C 03/24/19 08:08 Temperature Source Temporal Artery Scan 03/24/19 08:08 Pulse 85 03/24/19 08:12 Pulse 85 03/24/19 04:01 Respiratory Rate 20 03/24/19 08:12 Respiratory Effort Non-Labored 03/24/19 08:08 Respiratory Depth Normal 03/24/19 08:08 Respiratory Pattern Normal 03/24/19 08:08 Blood Pressure 101/58 L 03/24/19 04:01 Blood Pressure Mean 69 03/24/19 04:01 Blood Pressure Position Supine 03/24/19 08:08 Pulse Oximetry 93 L 03/24/19 08:04 Oxygen Delivery Method Nasal Cannula 03/24/19 08:08 Oxygen Flow Rate 2 03/24/19 08:08 Pain Level 2 03/24/19 03:01 Intake & Output 03/23/19 03/23/19 03/24/19 11:59 23:59 11:59 Intake Total 600 / 600 101.125 / 101.125 Output Total 525 / 525 Balance 600 / 600 -423.875 / -423.875 Weight 81.9 kg 81.9 kg Intake: IV 600 / 600 101.125 / 101.125 Output: Urine 525 / 525 Other: Urine Color Light Bea Urine Appearance Clear Urine Odor None Voiding Methods Bedpan Laboratory Results WBC 12.55 k/cumm (4.4-10.8) H 03/24/19 06:25 RBC 4.53 m/cumm (4.00-5.20) 03/24/19 06:25 Hgb 14.0 g/dL (12.0-15.5) 03/24/19 06:25 Hct 43.3 % (36.0-46.0) 03/24/19 06:25 MCV 95.6 fL (80-95) H 03/24/19 06:25 MCH 30.9 pg (27.0-33.0) 03/24/19 06:25 MCHC 32.3 g/dL (32.0-36.0) 03/24/19 06:25 RDW 12.7 % (11.7-14.6) 03/24/19 06:25 Plt Count 211 x1000/uL (130-400) 03/24/19 06:25 MPV 10.7 fL (8.0-11.0) 03/24/19 06:25 Immature Gran % 0.2 03/23/19 17:40 Neutrophils % 45.1 03/23/19 17:40 Lymphocytes % 39.7 03/23/19 17:40 Monocytes % 9.0 03/23/19 17:40 Eosinophils % 5.4 03/23/19 17:40 Basophils % 0.6 03/23/19 17:40 Absolute Neutrophils 6.54 k/cumm (1.2-6.7) 03/23/19 17:40 Absolute Lymphocytes 5.76 k/cumm (1.2-3.4) H 03/23/19 17:40 Absolute Monocytes 1.31 k/cumm (0.11-0.7) H 03/23/19 17:40 Absolute Eosinophils 0.78 k/cumm (0.0-0.7) H 03/23/19 17:40 Absolute Basophils 0.09 k/cumm (0.0-0.2) 03/23/19 17:40 Differential Comment Diff reviewed 03/23/19 17:40 RBC Morphology See below 03/23/19 17:40 Macrocytosis 1+ 03/23/19 17:40 PT 10.3 sec (9.3-11.0) 03/23/19 17:40 INR 1.0 (0.9-1.1) 03/23/19 17:40 APTT 52.1 sec (21.0-31.4) H D 03/24/19 06:25 Sodium 133 mmol/L (136-145) L 03/24/19 06:25 Potassium 4.1 mmol/L (3.5-5.1) 03/24/19 06:25 Chloride 102 mmol/L (98-107) 03/24/19 06:25 Carbon Dioxide 24.0 mmol/L (21.0-32.0) 03/24/19 06:25 Anion Gap 7.0 mmol/L (3-11) 03/24/19 06:25 BUN 8 mg/dL (7-18) 03/24/19 06:25 Creatinine 0.78 mg/dL (0.55-1.02) 03/24/19 06:25 Estimated GFR/1.73 m2 >= 60.00 (mL/min/1.73m2) 03/24/19 06:25 Glucose 242 mg/dL (70-100) H D 03/24/19 06:25 Calcium 8.6 mg/dL (8.5-10.1) 03/24/19 06:25 Magnesium 1.9 mg/dL (1.8-2.4) 03/24/19 06:25 Total Bilirubin 0.7 mg/dL (0.2-1.0) 03/24/19 06:25 AST 71 U/L (15-37) H 03/24/19 06:25 ALT 53 U/L (14-59) 03/24/19 06:25 Alkaline Phosphatase 86 U/L (46-116) 03/24/19 06:25 Troponin I 2.81 ng/mL (0.00-0.06) H* 03/24/19 06:25 NT-Pro-B Natriuret Pep 358 pg/mL (-299) H 03/23/19 17:41 Total Protein 7.0 g/dL (6.4-8.2) 03/24/19 06:25 Albumin 2.9 g/dL (3.4-5.0) L 03/24/19 06:25 TSH 2.81 uIU/mL (0.36-3.74) 03/23/19 17:40
--- NOTE | 2019-03-24 08:34 | PDOC.CMIN ---
Care Management Initial Assess REASON FOR HOSPITALIZATION:: NSTEMI COPD PAST MEDICAL HISTORY/PAST SURGICAL HISTORY:: Anxiety, arthritis of knee, asthma, COPD, Depression, elevated fasting glucose, hyperlipidemia, hypertension, suspected sleep apnea, vulvitis, cholecystectomy, hysterectomy, knee surgery PREVIOUS FUNCTIONAL STATUS/SOCIAL/FAMILY SUPPORTS:: Angelique resides in [facility] with her , Blair. Has patient been provided with information about the portal?: Yes Did the patient sign up for the portal?: No CODE STATUS:: Full Code INSURANCE COVERAGE / FINANCIAL ISSUES:: Medicare. Financial Asst 100 PRIMARY CARE PHYSICIAN:: Louis Malhotra POTENTIAL DISCHARGE NEEDS:: Angelique [place] been [place] [facility] bed availability anticipated for this afternoon or evening. PATIENT/FAMILY EDUCATION NEEDS:: Review transfer process. ANTICIPATED BARRIERS TO DISCHARGE:: None identified. TRANSPORTATION:: Via EMS, coordinated by Nursing Digital Marketing Apprentice. PLAN:: Angelique will transfer to [facility] [place], coordinated by Nursing Digital Marketing Apprentice.
[2019-03-24] MEDS: FLUoxetine 20 MG CAP 40 MG PO (08:39)
[2019-03-24] MEDS: Pantoprazole 40 MG TABCR PO (08:40)
[2019-03-24] MEDS: Aspirin 81 MG CHEW 162 MG PO (08:40)
[2019-03-24] MEDS: Ticagrelor 90 MG TAB PO (08:47)
[2019-03-24] MEDS: Normal Saline Flush 10 ML SYR IVP (10:33)
--- NOTE | 2019-03-24 10:47 | W.PM.DS.N ---
Date of service: 03/24/19 Time of Service: 10:47 DS: Diagnosis Discharge Diagnosis (1) NSTEMI (non-ST elevation myocardial infarction): Status: Acute (2) Acute exacerbation of chronic obstructive pulmonary disease (COPD): Status: Acute (3) Acute and chronic respiratory failure with hypoxia: Status: Acute (4) Depressive disorder: Status: Chronic (5) DM type 2 (diabetes mellitus, type 2): Status: Chronic (6) Essential hypertension: Status: Acute (7) Gastroesophageal reflux disease: Status: Acute (8) Anxiety: Status: Acute (9) Asthma: Status: Acute Discharge Plan Disposition Patient Disposition: [facility] Condition: Serious Discharge Details Chief Complaint: SOB Clinical Impression: NSTEMI (non-ST elevated myocardial infarction) Reason For Visit: NSTEMI COPD Admit Date/Time: 03/23/19 21:18 Admit Provider: Andrei Locke Attending Provider: Andrei Locke Primary Care Provider: Louis Malhotra ED Provider: Oksana Felipe Hospital Course Hospital Course: Ms Rodríguez is a 68 year old female with PMHx of COPD, chronic hypoxic respiratory failure, but not using oxygen because she can't afford it, asthma, as well as NIDDM2, Hypertension, hyperlipidemia, who was admitted to [facility] ICU overnight while awaiting a bed at [facility] for a cardiac cath due to an acute NSTEMI. The patient was sent to the ED yesterday from her PCP's office for shortness of breath and hypoxia and was found to have an elevated troponin of 2.99. Her EKG revealed an old RBB as well as a L anterior fascicular block. Her troponins went up as high as 3.07, but have been downtrending since (latest 2.60). [facility] cardiology was consulted over the phone, recommendations were made to start the patient on heparin drip, load her with brillinta and ensure she is on asa. She was accepted in transfer by Dr Salcedo of cardiology and awaited her bed in [facility] ICU, where she had not had any arrhythmic events, had decrease in her chest pain. The patient is clearly in COPD/asthma exacerbation at this time as well with pronounced wheezing. Per [facility] cardiology recommendations, patient's nebs and steroids were held - however, we strongly recommend reconsideration of at least steroids in this patient. The patient is medically stable for transfer to [facility] for a cardiac cath. She is in agreement with this transfer. Care for patient and completion of her transfer summary took 40 minutes on day of transfer. Total critical care time 40 minutes. Home Meds and New Rx's Prescriptions: No Action cyclobenzaprine 5 mg tablet 5 mg PO TID PRN (Reason: muscle spasm) Qty: 30 RF: 0 ipratropium-albuterol 0.5 mg-3 mg(2.5 mg base)/3 mL solution for nebulization 3 ml inhalation ONCE Qty: 3 RF: 0 fluticasone propionate 50 mcg/actuation spray,suspension 1 - 2 spray NS DAILY Qty: 1 RF: 11 omega-3 fatty acids-fish oil 1 EACH capsule 1 ea PO DAILY RF: 0 Premarin 45 GM cream 1 g Topical DAILY PRNQty: 1 RF: 12 ipratropium-albuterol 3 ML solution for nebulization 3 ml Inhalation Q6H PRN Qty: 120 RF: 3 PROVENTIL HFA 18 GM HFA.AER.AD 2 puff Inhalation Q6H PRN Qty: 1 RF: 3 clobetasol-emollient 15 GM cream 15 gm Topical twice weekly PRNQty: 1 RF: 5 Symbicort 160-4.5 mcg/actuation HFA aerosol inhaler 2 puff Inhalation BID Qty: 3 RF: 3 betamethasone valerate 0.1 % cream 1 applic TP BID PRN (Reason: skin irritation) Qty: 45 RF: 5 atorvastatin 20 mg tablet 20 mg PO QHS Qty: 90 RF: 3 pantoprazole [Protonix] 40 mg tablet,delayed release (DR/EC) 40 mg PO DAILY Qty: 90 RF: 3 Januvia 100 mg tablet 100 mg PO DAILY Qty: 30 RF: 11 clonazepam 2 mg tablet 2 mg PO HS 30 Days Qty: 30 RF: 5 fluoxetine [Prozac] 40 mg capsule 40 mg PO DAILY Qty: 90 RF: 3 fluoxetine 20 mg capsule 20 mg PO HS Qty: 90 RF: 3 lidocaine [Lidoderm] 5 % adhesive patch,medicated 1 patch TP DAILY PRN (Reason: pain) Qty: 15 RF: 0 Discharge Instructions Instructions: Myocardial Infarction (DC) Activity:: bedrest Diet:: NPO Discharge Orders Discharge Orders: Discharge Order (Routine); Ordered 03/24/19 Ordered By: Amina Self DS: Summary Status at Discharge Functional status at discharge: independent ambulation (ordered bedrest due to NSTEMI) Overall status at discharge: patient is not back to baseline Mental Status: mental status grossly normal Speech and Movement: speech and movement normal Mood: anxious mood Affect: anxious affect Exam Narrative Exam Narrative: General: anxious elderly female, appears to be mildly dyspneic, A&Ox3, anxious HEENT: EOMI, MMM Heart: RRR Lungs: wheezing on expiration B GI: abdomen is soft, nontender, nondistended Extremities: trace edema BLE's - Psych Mental Status: mental status grossly normal Speech and Movement: speech and movement normal Mood: anxious mood Affect: anxious affect DS: Data Vitals/I&O Vitals and I&O: Vital Signs Temperature 36.6 C 03/24/19 08:08 Temperature Source Temporal Artery Scan 03/24/19 08:08 Pulse 88 03/24/19 10:01 Pulse 87 03/24/19 10:01 Respiratory Rate 18 03/24/19 10:01 Respiratory Effort Non-Labored 03/24/19 08:08 Respiratory Depth Normal 03/24/19 08:08 Respiratory Pattern Normal 03/24/19 08:08 Blood Pressure 102/52 L 03/24/19 10:01 Blood Pressure Mean 61 03/24/19 10:01 Blood Pressure Position Supine 03/24/19 08:08 Pulse Oximetry 92 L 03/24/19 10:01 Oxygen Delivery Method Nasal Cannula 03/24/19 08:48 Oxygen Flow Rate 2 03/24/19 08:48 Pain Level 3 03/24/19 10:30 Intake & Output 03/23/19 03/23/19 03/24/19 11:59 23:59 11:59 Intake Total 600 / 600 701.125 / 701.125 Output Total 675 / 675 Balance 600 / 600 26.125 / 26.125 Weight 81.9 kg 79.3 kg Intake: IV 600 / 600 101.125 / 101.125 Oral 600 / 600 Output: Urine 675 / 675 Other: Urine Color Light Bea Urine Appearance Clear Urine Odor Normal Voiding Methods Bedside Commode Data Completed and Pending Completed studies during hospitalization [Text1]: CXR: Similar areas of midlung zone scarring and/or subsegmental atelectasis with no new significant consolidation to suggest pneumonia. Labs on day of discharge: Labs from last 24 hours 03/24/19 03/24/19 03/24/19 08:47 06:25 06:25 WBC 12.55 H RBC 4.53 Hgb 14.0 Hct 43.3 MCV 95.6 H MCH 30.9 MCHC 32.3 RDW 12.7 Plt Count 211 MPV 10.7 Immature Gran % Neutrophils % Lymphocytes % Monocytes % Eosinophils % Basophils % Absolute Neutrophils Absolute Lymphocytes Absolute Monocytes Absolute Eosinophils Absolute Basophils Differential Comment RBC Morphology Macrocytosis PT INR APTT 52.1 H D Sodium Potassium Chloride Carbon Dioxide Anion Gap BUN Creatinine Estimated GFR/1.73 m2 Glucose Calcium Magnesium Total Bilirubin AST ALT Alkaline Phosphatase Troponin I 2.60 H* NT-Pro-B Natriuret Pep Total Protein Albumin TSH 03/24/19 03/24/19 03/24/19 06:25 06:25 06:00 WBC RBC Hgb Hct MCV MCH MCHC RDW Plt Count MPV Immature Gran % Neutrophils % Lymphocytes % Monocytes % Eosinophils % Basophils % Absolute Neutrophils Absolute Lymphocytes Absolute Monocytes Absolute Eosinophils Absolute Basophils Differential Comment RBC Morphology Macrocytosis PT INR APTT Sodium 133 L Potassium 4.1 Chloride 102 Carbon Dioxide 24.0 Anion Gap 7.0 BUN 8 Creatinine 0.78 Estimated GFR/1.73 m2 >= 60.00 Glucose 242 H D Calcium 8.6 Magnesium 1.9 Total Bilirubin 0.7 AST 71 H ALT 53 Alkaline Phosphatase 86 Troponin I 2.81 H* Cancelled NT-Pro-B Natriuret Pep Total Protein 7.0 Albumin 2.9 L [facility] 03/24/19 03/24/19 03/23/19 03:00 00:55 22:24 WBC RBC Hgb Hct MCV MCH MCHC RDW Plt Count MPV Immature Gran % Neutrophils % Lymphocytes % Monocytes % Eosinophils % Basophils % Absolute Neutrophils Absolute Lymphocytes Absolute Monocytes Absolute Eosinophils Absolute Basophils Differential Comment RBC Morphology Macrocytosis PT INR APTT 72.8 H Sodium Potassium Chloride Carbon Dioxide Anion Gap BUN Creatinine Estimated GFR/1.73 m2 Glucose Calcium Magnesium Total Bilirubin AST ALT Alkaline Phosphatase Troponin I 2.94 H* 3.07 H* NT-Pro-B Natriuret Pep Total Protein Albumin TSH 03/23/19 03/23/19 03/23/19 21:15 17:41 17:40 WBC RBC Hgb Hct MCV MCH MCHC RDW Plt Count MPV Immature Gran % Neutrophils % Lymphocytes % Monocytes % Eosinophils % Basophils % Absolute Neutrophils Absolute Lymphocytes Absolute Monocytes Absolute Eosinophils Absolute Basophils Differential Comment RBC Morphology Macrocytosis PT INR APTT Sodium Potassium Chloride Carbon Dioxide Anion Gap BUN Creatinine Estimated GFR/1.73 m2 Glucose Calcium Magnesium Total Bilirubin AST ALT Alkaline Phosphatase Troponin I 2.59 H* NT-Pro-B Natriuret Pep 358 H Total Protein Albumin TSH 2.81 03/23/19 03/23/19 03/23/19 17:40 17:40 17:40 WBC 14.50 H RBC 4.97 Hgb 15.2 Hct 47.3 H MCV 95.2 H MCH 30.6 MCHC 32.1 RDW 12.9 Plt Count 221 MPV 10.1 Immature Gran % 0.2 Neutrophils % 45.1 Lymphocytes % 39.7 Monocytes % 9.0 Eosinophils % 5.4 Basophils % 0.6 Absolute Neutrophils 6.54 Absolute Lymphocytes 5.76 H Absolute Monocytes 1.31 H Absolute Eosinophils 0.78 H Absolute Basophils 0.09 Differential Comment Diff reviewed RBC Morphology See below Macrocytosis 1+ PT 10.3 INR 1.0 APTT Sodium 141 Potassium 3.8 Chloride 104 Carbon Dioxide 28.3 Anion Gap 8.7 BUN 9 Creatinine 0.74 Estimated GFR/1.73 m2 >= 60.00 Glucose 148 H Calcium 8.9 Magnesium 1.6 L Total Bilirubin 0.6 AST 90 H ALT 60 H Alkaline Phosphatase 96 Troponin I 2.99 H* NT-Pro-B Natriuret Pep Total Protein 7.4 Albumin 3.2 L TSH PFSH Medical History Anxiety Arthritis of knee Asthma COPD (chronic obstructive pulmonary disease) Depression Elevated fasting glucose Hyperlipidemia Hypertension Suspected sleep apnea Vulvitis 04/2015. neg vag path. Rx with topical E2 and Clobetasol. Surgical History Cholecystectomy History of hysterectomy (Chronic) History of knee surgery (Acute) Social History Smoking/Tobacco Use Status: Former Tobacco Use Alcohol Intake: never Drug use: Never Do you feel safe at home: Yes Do you feel safe in your relationship?: Yes
== END 2019-03-24 10:57 | disposition short-term general hospital (02) | DRG 281 ==
LOC: ER 23:07 → ICU 23:14
PROVIDERS: Admitting Provider Family Medicine; Emergency Provider Physician Assistant; PCP Family Medicine; Visit Provider Internal Medicine
DX: I21.4 Non-ST elevation (NSTEMI) myocardial infarction (principal); J44.1 Chronic obstructive pulmonary disease with (acute) exacerbation; J96.11 Chronic respiratory failure with hypoxia; T41.5X6A Underdosing of therapeutic gases, initial encounter; Z91.120 Patient's intentional underdosing of medication regimen due to financial hardship; I10 Essential (primary) hypertension; E78.5 Hyperlipidemia, unspecified; F32.9 Major depressive disorder, single episode, unspecified; E11.9 Type 2 diabetes mellitus without complications; K21.9 Gastro-esophageal reflux disease without esophagitis; F41.9 Anxiety disorder, unspecified; J45.909 Unspecified asthma, uncomplicated
CPT/HCPCS: 36415; 80053; 85027; 93005; 94640; 96361; 96365; 96367; 99223; 99285; 99291; 71046; 83735; 83880; 84443; 84484; 85025; 85610; 85730; 93010; J2270; J2930; J3475; J3490; J7620

== ENCOUNTER 2019-05-22 14:25 | Emergency (ER) | payer MEDICARE, SELFPAY ==
[2019-05-22] VITALS (31 sets, daily range): BP systolic 76–108; BP diastolic 37–66; PULSE 63–103; RESP 2–37; TEMP 36.3; O2SAT 88–98
[2019-05-22] MEDS: Normal Saline 250 ML IV (15:00)
[2019-05-22] MEDS: Albuterol/Ipratropium 3 ML UPD VIAL (15:03)
--- NOTE | 2019-05-22 15:04 | DI.RAD_ITS ---
EXAM: XR PORTABLE CHEST AP CLINICAL HISTORY: shortness of breath TECHNIQUE: COMPARISON: CHEST 2 VIEWS PA,LAT from 06/28/2014 FINDINGS: Portable AP view of the chest was obtained and shows new diffuse bilateral intrapulmonary predominant ly reticular infiltrates which were not present on examination of 03/23/2019 sparing the right lung b ase. Heart size appears to be at the upper limits of normal. The findings as described are nonspecific and the possibility of asymmetric pulmonary edema is raised . Alternatively infectious process could explain these findings. Other etiologies including inflamm atory causes are not excluded. Additional evaluation with chest CT may be helpful in the evaluation of this patient. IMPRESSION:
--- NOTE | 2019-05-22 15:04 | W.ED.GENAD ---
Discharge Plan Discharge Details Chief Complaint: SOB Primary Care Provider: Louis Malhotra ED Provider: Devin Amin Home Meds and New Rx's Prescriptions: No Action cyclobenzaprine 5 mg tablet 5 mg PO TID PRN (Reason: muscle spasm) Qty: 30 RF: 0 ipratropium-albuterol 0.5 mg-3 mg(2.5 mg base)/3 mL solution for nebulization 3 ml inhalation ONCE Qty: 3 RF: 0 fluticasone propionate 50 mcg/actuation spray,suspension 1 - 2 spray NS DAILY Qty: 1 RF: 11 omega-3 fatty acids-fish oil 1 EACH capsule 1 ea PO DAILY RF: 0 Premarin 45 GM cream 1 g Topical DAILY PRNQty: 1 RF: 12 PROVENTIL HFA 18 GM HFA.AER.AD 2 puff Inhalation Q6H PRN Qty: 1 RF: 3 clobetasol-emollient 15 GM cream 15 gm Topical twice weekly PRNQty: 1 RF: 5 Symbicort 160-4.5 mcg/actuation HFA aerosol inhaler 2 puff Inhalation BID Qty: 3 RF: 3 betamethasone valerate 0.1 % cream 1 applic TP BID PRN (Reason: skin irritation) Qty: 45 RF: 5 atorvastatin 20 mg tablet 20 mg PO QHS Qty: 90 RF: 3 pantoprazole [Protonix] 40 mg tablet,delayed release (DR/EC) 40 mg PO DAILY Qty: 90 RF: 3 Januvia 100 mg tablet 100 mg PO DAILY Qty: 30 RF: 11 clonazepam 2 mg tablet 2 mg PO HS 30 Days Qty: 30 RF: 5 fluoxetine [Prozac] 40 mg capsule 40 mg PO DAILY Qty: 90 RF: 3 fluoxetine 20 mg capsule 20 mg PO HS Qty: 90 RF: 3 (DME) Blood Glucose Test Strip See Rx Instructions .ROUTE .MEDSUPPLY Qty: 100 RF: 11 (DME) lancets [Fingerstix Lancets] Misc See Rx Instructions .ROUTE .MEDSUPPLY Qty: 100 RF: 3 (DME) blood-glucose meter Kit See Rx Instructions .ROUTE .MEDSUPPLY Qty: 1 RF: 0 furosemide 20 mg tablet 20 mg PO DAILY Qty: 30 RF: 2 Brilinta 90 mg tablet 90 mg PO Q12H Qty: 60 RF: 2 Discharge Data Date/Time: 05/27/19 23:59 Discharge Date/Time-TO BE ENTERED AT DEPARTURE: 05/22/19 17:20 Medical Decision Making 15:10 --68-year-old female with coronary artery disease, COPD, here with shortness of breath progressed over the past 1 week as well as loose stools over the past 1 week. Hypoxic, tachypneic, tachycardic, and hypotensive. Patient is critically ill on arrival. Patient appears intravascularly depleted. I will give crystalloid fluid bolus 250 mL and reassess. Suspect COPD exacerbation. Patient was given DuoNeb treatment and Solu-Medrol. I am initiating BiPAP given her work of breathing. Consider pneumonia. Chest x-ray pending. Screening ECG was reviewed and interpreted by me: Sinus rhythm 94 bpm, normal axis, right bundle branch block present, nondiagnostic. Consider ACS and CHF. Will check troponin and BNP. Consider C. difficile infection given loose stool and recent antibiotic use. I will check C. difficile screening. Will maintian cdiff precautions. I obtained and reviewed outside hospital medical record: Discharge summary from [facility] [place] discusses NSTEMI, multivessel disease, not a surgical candidate for CABG, status post RONNIE x2 RCA as well as COPD exacerbation with self-limited hemoptysis that was treated with prednisone and doxycycline. --Chest x-ray was reviewed and discussed with radiology: Dr. Jama notes diffuse opacities consistent with likely CHF versus less likely infectious etiology, significantly worse than prior chest x-ray from 03/23/2019. Plan to obtain CT of the chest to better characterize disease. We will initiate antibiotic coverage with ceftriaxone IV. -- Labs reviewed: Elevated troponin 0.49, elevated BNP 6100. Leukocytosis noted -suspect secondary to diarrheal disease. C. difficile testing is pending. Patient was reassessed and respiratory status significantly improved on BiPAP. Patient has received approximately 500 mL of crystalloid and blood pressure remains low with a MAP of 70. 16:09 --I spoke with chorus dancer and nurse practitioner, discussed ED presentation and course including all diagnostics, patient to be excepted to [facility] cardiology service Dr. Mackenzie. Awaiting bed availability. HPI General Mode of arrival: ambulatory. Date/Time Provider Initiated Documentation: 05/22/19 14:45. Limitations to Documentation: no limitations. Information obtained by: patient and EMS. HPI Narrative: 68-year-old female with history of arteriosclerotic cardiovascular disease, COPD, and STEMI, here with chief complaint of shortness of breath. Patient notes over the past week she has had progressively worsening shortness of breath. Shortness of breath is now severe. Patient is typically on oxygen 4 L nasal cannula at home and this was not helping today. When EMS arrived they note that patient was initially saturating 52% on 4 L. Patient was administered high flow nonrebreather and saturation improved to the mid 90s and she became more alert. Patient denies chest pain. She denies swelling. She does have loose stool over the past 1 week. She is not currently taking steroid or antibiotic. She does state that she recently had pneumonia and was treated at [facility]. Related Data Home Medications Medication Instructions Recorded Confirmed omega-3 fatty acids-fish oil 1 ea PO DAILY 03/30/13 05/22/19 Premarin 1 g TOPICAL DAILY PRN #1 tube 04/07/15 03/23/19 clobetasol-emollient 15 gm TOPICAL twice weekly PRN #1 11/27/17 03/23/19 tube fluticasone propionate 50 1 - 2 spray NS DAILY #1 inh 02/25/18 05/22/19 mcg/actuation nasal spray,suspension Symbicort 2 puff INHALATION BID #3 inhaler 03/26/18 05/22/19 betamethasone valerate 0.1 % 1 applic TP BID PRN #45 gm 07/02/18 03/23/19 topical cream cyclobenzaprine 5 mg tablet 5 mg PO TID PRN #30 tab 10/28/18 05/22/19 atorvastatin 20 mg tablet 20 mg PO QHS #90 tab 11/14/18 05/22/19 pantoprazole 40 mg tablet,delayed 40 mg PO DAILY #90 tab-cap 12/05/18 05/22/19 release sitagliptin 100 mg tablet 100 mg PO DAILY #30 tab-cap 12/17/18 05/22/19 clonazepam 2 mg tablet 2 mg PO HS 30 Days #30 tab-cap 12/31/18 05/22/19 fluoxetine 20 mg capsule 20 mg PO HS #90 tab-cap 02/26/19 05/22/19 fluoxetine 40 mg capsule 40 mg PO DAILY #90 tab-cap 02/26/19 05/22/19 Blood Glucose Test #100 each NS 03/31/19 blood-glucose meter #1 each 03/31/19 lancets #100 each 03/31/19 furosemide 20 mg tablet 20 mg PO DAILY #30 tab 04/22/19 05/22/19 ticagrelor 90 mg tablet 90 mg PO Q12H #60 tab 04/22/19 05/22/19 Previous Rx's Medication Instructions Recorded fluticasone propionate 50 1 - 2 spray NS DAILY #1 inh 02/25/18 mcg/actuation nasal spray,suspension Symbicort 2 puff INHALATION BID #3 inhaler 03/26/18 betamethasone valerate 0.1 % 1 applic TP BID PRN #45 gm 07/02/18 topical cream cyclobenzaprine 5 mg tablet 5 mg PO TID PRN #30 tab 10/28/18 atorvastatin 20 mg tablet 20 mg PO QHS #90 tab 11/14/18 pantoprazole 40 mg tablet,delayed 40 mg PO DAILY #90 tab-cap 12/05/18 release sitagliptin 100 mg tablet 100 mg PO DAILY #30 tab-cap 12/17/18 clonazepam 2 mg tablet 2 mg PO HS 30 Days #30 tab-cap 12/31/18 fluoxetine 20 mg capsule 20 mg PO HS #90 tab-cap 02/26/19 fluoxetine 40 mg capsule 40 mg PO DAILY #90 tab-cap 02/26/19 Blood Glucose Test #100 each NS 03/31/19 blood-glucose meter #1 each 03/31/19 lancets #100 each 03/31/19 furosemide 20 mg tablet 20 mg PO DAILY #30 tab 04/22/19 ticagrelor 90 mg tablet 90 mg PO Q12H #60 tab 04/22/19 Allergies Allergy/AdvReac Type Severity Reaction Status Date / Time codeine Allergy Mild ITCH, RASH Unverified 05/22/19 14:33 Sulfa (Sulfonamide AdvReac Intermediate Nausea Unverified 05/22/19 14:33 Antibiotics) General Stated Complaint: SOB CAROLINE: 2 Review of Systems All systems reviewed & are unremarkable except as noted in HPI and below and Unobtainable due to (Unable to complete comprehensive review of systems secondary to acuity) Constitutional Constitutional: Denies fever(s) Cardiovascular Cardiovascular: Denies chest pain and Reports dyspnea Respiratory Respiratory: Reports dyspnea PFSH Medical History Anxiety Arthritis of knee Asthma COPD (chronic obstructive pulmonary disease) Depression Elevated fasting glucose Hyperlipidemia Hypertension Suspected sleep apnea Vulvitis 04/2015. neg vag path. Rx with topical E2 and Clobetasol. Surgical History Cholecystectomy History of hysterectomy (Chronic) History of knee surgery (Acute) Social History Smoking/Tobacco Use Status: Former Tobacco Use Alcohol Intake: never Drug use: Never Substance use type: does not use Do you feel safe at home: Yes Do you feel safe in your relationship?: Yes Exam Const General: cooperative and in distress HENMT Face and sinus: dry mucous membranes Eyes Conjunctivae: normal conjunctivae Sclera: normal sclerae Neck Neck: trachea midline, supple and no JVD Resp Effort & Inspection: labored Auscultation: rales, no rhonchi and no wheezes Cardio Jugular venous pressure: no JVD Rate: tachycardic Rhythm: regular rhythm GI Palpation: soft, not firm, no guarding, no masses, not rigid and nontender Skin General skin exam: no rashes or lesions noted Neuro General: alert, awake, oriented x3 and tone normal Extrem General: no calf tenderness bilaterally and no edema Psych Appearance: grossly normal Affect: anxious affect Course Vital Signs Vital signs: Vital Signs Temperature 36.3 C L 05/22/19 14:25 Pulse 101 H 05/22/19 14:25 Respiratory Rate 30 H 05/22/19 14:25 Blood Pressure 98/53 L 05/22/19 14:25 Pulse Oximetry 94 L 05/22/19 14:25 Temperature 36.3 C L 05/22/19 14:25 Temperature Source Skin 05/22/19 14:25 Pulse 101 H 05/22/19 14:25 Respiratory Rate 26 H 05/22/19 14:37 Respiratory Effort Labored 05/22/19 14:37 Respiratory Pattern Tachypnea 05/22/19 14:37 Blood Pressure 98/53 L 05/22/19 14:25 Blood Pressure Position Supine 05/22/19 14:25 Pulse Oximetry 94 L 05/22/19 14:25 Oxygen Delivery Method Non-Rebreather 05/22/19 14:25 Pain Level 4 05/22/19 14:25 Comment 05/22/19 14:25 Critical Care Time Critical Care Time Critical Care Time: Yes Total Critical Care Time: 50 Attestation: I spent greater than 50 minutes addressing this patient's immediate life threats.
[2019-05-22] MEDS: methylPREDNISolone SUCC 125 MG VIAL IVP (15:12)
[2019-05-22 15:21] LABS: Abs Immature Grans 0.09 k/cumm (0.0-0.09); Absolute Eosinophil Count 0.41 k/cumm (0.0-0.7); Absolute Lymphocyte Count 3.53 k/cumm (1.2-3.4); Absolute Monocyte Count 0.65 k/cumm (0.11-0.7); Absolute Neutrophil Count 12.49 k/cumm (1.2-6.7); Basophils % 0.2; Eosinophils % 2.4; HCT 38.4 % (36.0-46.0); HGB 11.7 g/dL (12.0-15.5); Immature Grans % 0.5; Lymphocytes % 20.5; Mean Corp. HGB Concentration 30.5 g/dL (32.0-36.0); Mean Corpuscular Hemoglobin 30.5 pg (27.0-33.0); Mean Platelet Volume 10.3 fL (8.0-11.0); Monocytes % 3.8; Neutrophils % 72.6; Platelet Count 454 x1000/uL (130-400); RBC 3.84 m/cumm (4.00-5.20); RBC Distribution Width 17.7 % (11.7-14.6); White Blood Cell Count 17.21 k/cumm (4.4-10.8)
[2019-05-22] MEDS: Normal Saline 250 ML 500 ML IV (15:21)
--- NOTE | 2019-05-22 15:28 | NUR.NOTE ---
Nursing Note: iv fluid stopped at this time only 100mls of second 250ml bolus administered. improved bp, due to hx of chf hold on iv fluids at this time. ctm.
[2019-05-22 15:37] LABS: ALT 35 U/L (14-59); AST 47 U/L (15-37); Albumin 1.8 g/dL (3.4-5.0); Alkaline Phosphatase 116 U/L (46-116); Anion Gap 9.1 mmol/L (3-11); BUN 11 mg/dL (7-18); Bilirubin, Total 1.6 mg/dL (0.2-1.0); CO2 29.9 mmol/L (21.0-32.0); CREATININE 0.52 mg/dL (0.55-1.02); Calcium 8.5 mg/dL (8.5-10.1); Chloride 103 mmol/L (98-107); Glucose 115 mg/dL (74-106); NT-proBNP 6098 pg/mL (<300); Potassium 3.4 mmol/L (3.5-5.1); Sodium 142 mmol/L (136-145); Total Protein 7.4 g/dL (6.4-8.2)
[2019-05-22] MEDS: cefTRIAXone 1 GM/50 ML BAG IVPB (15:37)
[2019-05-22 15:39] LABS: Troponin I 0.49 ng/Ml (<0.06)
[2019-05-22 15:44] LABS: Absolute Basophil Count 0.03 k/cumm (0.0-0.2)
[2019-05-22] MEDS: Omnipaque 350 MG/ML 100 ML BTL IJ (15:54)
[2019-05-22 15:57] LABS: Diff Comment Diff Reviewed
[2019-05-22 15:59] LABS: Macrocytosis 1+
--- NOTE | 2019-05-22 16:08 | DI.CT_ITS ---
EXAM: CT CHEST W CLINICAL HISTORY: abnormal chest xray, SOB TECHNIQUE: Imaging Protocol: Axial computed tomography images with coronal and sagittal reformatted images were created and reviewed CONTRAST MATERIAL: The examination was performed according to the usual protocol with IV contrast. Oral: No COMPARISON: CHEST FOR PULMONARY EMBOLUS from 03/22/2013 XR PORTABLE CHEST AP from 05/22/2019 FINDINGS: Tracheobronchial tree: Mild bronchiectasis. Mediastinum and Leisa: Mildly enlarged lymph nodes in the mediastinum. No pathologically enlarged lym ph nodes are noted. Pulmonary parenchyma: There are diffuse ground-glass opacities. Focal opacities are seen in the righ t middle, right upper and left lingular lobes. These may represent atelectasis or scarring, pneumoni a cannot be excluded. Pleura: No effusion or pneumothorax. Heart/Aorta: There is atherosclerosis of the thoracic aorta. No aneurysmal dilatation is noted. The heart appears at the upper limits of normal in size. Coronary artery calcifications or coronary art kingston stents are present. No pericardial effusion is seen. Upper abdomen: The liver has a lobulated contour with an enlarged left lobe suggesting hepatic cirrh osis. There is a small hiatal hernia. The patient is status post cholecystectomy. Degenerative chayo nges are seen in the spine. There is an old superior endplate compression deformity at L2. Lymph nodes: No pathologically enlarged lymph nodes are noted. Great vessels: There is an abnormally dilated left subclavian vein measuring up to 2 centimeters. Th is may represent a varix. IMPRESSION: 1. Diffuse ground-glass opacities in the lung. This is nonspecific. This may represent pneumonitis, pulmonary edema, hemorrhage, or pulmonary fibrosis among other etiologies. 2. Pulmonary fibrosis and bronchiectasis. 3. Abnormally dilated left subclavian vein. This may represent a varix. 4. Findings suggesting hepatic cirrhosis. Cholecystectomy. DATA REPOSITORY: All CT scans at this facility are submitted to the National Radiology Data Registry (NRDR) Dose Index Registry (DIR) with the [employer] ([employer]). RADIATION OPTIMIZATION: All CT scans at this facility use at least one of these dose optimization te chniques: automated exposure control; mA and/or kV adjustment per patient size (includes targeted exa ms where dose is matched to clinical indication); or iterative reconstruction.
--- NOTE | 2019-05-22 16:52 | DI.VRAD_ITS ---
PROCEDURE INFORMATION: Exam: CT Chest With Contrast Exam date and time: 05/22/2019 4:12 PM Age: 68 years old Clinical indication: Abnormal findings; Abnormal radiologic exam of lung or chest; Shortness of breath; Patient HX: Abnormal chest x ray, SOB TECHNIQUE: Imaging protocol: Computed tomography of the chest with intravenous contrast. COMPARISON: CT CHEST/ABD/PEL W 11/18/2018 11:24 AM FINDINGS: Lungs: Interstitial fibrosis. Mild bronchiectasis. Pleural space: Unremarkable. No pneumothorax. No pleural effusion. Heart: Unremarkable. No cardiomegaly. No pericardial effusion. Aorta: Aortic and coronary atherosclerosis. Great vessels off aortic arch: Abnormally dilated left subclavian vein measuring up to 2 cm. This could represent a varix. Lymph nodes: Unremarkable. No enlarged lymph nodes. Gallbladder and bile ducts: Cholecystectomy. Bones/joints: Unremarkable. No acute fracture. Soft tissues: Unremarkable. IMPRESSION: Abnormally dilated left subclavian vein measuring up to 2 cm. This could represent a varix. Aortic and coronary atherosclerosis. Cholecystectomy. Interstitial fibrosis. Mild bronchiectasis. Dictated and Authenticated by: Danna Jacinto MD. Ordering:MAIA Beltran MD
[2019-05-22 17:03] LABS: Lactate 1.8 mmol/L (0.6-1.4)
== END 2019-05-22 17:20 ==
LOC: ER 15:47
PROVIDERS: Emergency Provider Student in an Organized Health Care Education/Training Program; PCP Family Medicine
DX: R09.02 Hypoxemia (principal); I95.89 Other hypotension; R00.0 Tachycardia, unspecified; R06.82 Tachypnea, not elsewhere classified; R77.8 Other specified abnormalities of plasma proteins; R19.7 Diarrhea, unspecified; E11.9 Type 2 diabetes mellitus without complications; J44.9 Chronic obstructive pulmonary disease, unspecified; I25.2 Old myocardial infarction; I25.10 Atherosclerotic heart disease of native coronary artery without angina pectoris; Z87.891 Personal history of nicotine dependence; Z99.81 Dependence on supplemental oxygen; R06.03 Acute respiratory distress
CPT/HCPCS: 36415; 80053; 87040; 93005; 94640; 96361; 96365; 96375; 99291; 71045; 71260; 83605; 83880; 84484; 85025; 93010; J0696; J2930; J3490; J7620